=== PATIENT | female | born 1970 | race Caucasian/White ===

== ENCOUNTER 2016-09-28 15:35 | Emergency (ER) | payer OTHER ==
[2016-09-28 16:22] LABS: BASOPHILS 0.3 % (0.0-2.0); EOSINOPHILS 0.5 % (0.0-6.0); EOSINOPHILS# 0.1 X 10^3uL (0.0-0.4); HEMATOCRIT 44.6 % (36.0-48.0); HEMOGLOBIN 15.3 g/dL (12.0-16.0); LYMPHOCYTES 16.7 % (20.0-40.0); LYMPHOCYTES# 2.4 X 10^3uL (0.8-3.8); MEAN CORPUS. HGB CONCENTRATION 34.3 g/dL (32.0-36.0); MEAN CORPUSCULAR HEMOGLOBIN 28.8 pg (29.0-35.0); MEAN PLATELET VOLUME 10.1 fL (7.4-10.4); MONOCYTES 5.2 % (2.0-10.0); MONOCYTES# 0.7 X 10^3uL (0.2-1.0); NEUTROPHILS 77.3 % (54.0-75.0); NEUTROPHILS# 11.1 X 10^3uL (2.6-6.7); PLATELET COUNT 369 X 10^3uL (130-440); RED BLOOD COUNT 5.31 X 10^6uL (4.20-6.10); RED CELL DISTRIBUTION WIDTH 12.3 % (11.5-14.5); WHITE BLOOD COUNT 14.3 X 10^3uL (3.9-10.7)
[2016-09-28] MEDS ORDERED: HYDROmorphone HCL 1 MG/ML SYR ONE (16:30)
[2016-09-28 16:31] LABS: A/G RATIO 1.2; ALBUMIN 4.3 g/dL (3.5-5.0); ALKALINE PHOSPHATASE 81 U/L (38-126); ALT 40 U/L (9-52); AST 29 U/L (14-36); BILIRUBIN, TOTAL 0.9 mg/dL (0.2-1.3); BLOOD UREA NITROGEN 12 mg/dL (7-17); CALCIUM 9.5 mg/dL (8.4-10.2); CHLORIDE 103 mmol/L (98-107); CREATININE 0.9 mg/dL (0.5-1.0); EST GLOMERULAR FILTRATION RATE > 60 mL/min; GLUCOSE 171 mg/dL (70-100); POTASSIUM 3.2 mmol/L (3.5-5.1); SODIUM 139 mmol/L (137-145)
[2016-09-28] MEDS ORDERED: ONDANSETRON ODT 4 MG TAB.RAPDIS ONE (16:49)
[2016-09-28] MEDS ORDERED: LORazepam 2 MG/ML INJ ONE (16:51)
--- NOTE | 2016-09-28 17:03 | CT REPORT ---
HISTORY: Headache, nausea, vomiting COMPARISON: None. TECHNIQUE: Axial non-contrast images obtained from skull vertex through foramen magnum. Dose reduction technique was utilized. FINDINGS: BRAIN: There is no atrophy. No acute intracranial hemorrhage. No mass effect or hydrocephalus. There is a subtle lucency in the right posterior cerebellar hemisphere which could represent normal folia versu s tiny remote lacunar infarct. BONES AND EXTRACRANIAL SOFT TISSUES: The orbits are unremarkable. The paranasal sinuses and mastoid air cells are clear. The calvarium is intact. IMPRESSION: 1. No acute intracranial abnormality. 2. Subtle lucency in the right posterior cerebellar hemisphere which could represent normal folia hank arnaud remote lacunar infarct. Final Electronic Signature: This report was electronically signed by Derian Rizo MD on 09/28/2016 5:01 PM. moe /
--- NOTE | 2016-09-28 18:21 | ER PHYSICIAN DOCUMENTATION ---
Physician Documentation [facility] Name:Jane Carrington Age:46 yrs Sex:Female :1970 Arrival Date:09/28/2016 Time:15:35 Bed4 Private MD: Khurram Irizarry Disposition: 09/28/16 17:43 Discharged to Home/Self Care. Impression: Acute Headache, Palpitations. - Condition is Good. - Discharge Instructions: HEADACHE, Unspecified, PALPITATIONS. - Prescriptions for [place] 5- 325 mg Oral - take 1 tablet by ORAL route every 6 hours As needed; 5 tablet. Zofran 4 mg Oral Tablet - take 1-2 tablet by ORAL route every 4-6 hours As needed; 10 tablet. - Medical Reconciliation form form. - Follow up: Private Physician; When: 4- 6 days; Reason: Recheck today's complaints, Continuance of care. - Problem is new. - Symptoms are resolved. HPI: 09/28 15:57 This 46 yrs old Female presents to ER via EMS with complaints of tl1 Nausea/Vomiting . 15:57 The patient presents to the emergency department with nausea, with vomiting. Onset: The tl1 symptom(s)/episode began/occurred suddenly, today. 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 2 weeks ago she was [facility] hospitalized in [place] with a bowel obstruction, that resolved with steroids. Since then she has been getting better, though she developed a cold about a week ago. Today she drove to [facility] and climbed the [place] [employer] [place] which was about 4 miles up. She felt fine at the top and rested, with her moon retriever, Brendan, for about 5 minutes before hiking down. Shortly after she started her descent. she had the abrupt onset of palpitations that were rapid and forceful. She continued her descent and developed a fairly rapid onset h/a over several minutes and developed,nausea and progressive fatigue, shakiness, and generalized weakness. She was able to hike down to the parking lot, but felt increasing. 15:57 ly awful and had to stop to rest several times. By the time she got to the parking lot [facility] she was very weak and nearly incontinent of stool. Medics were summoned and she was transported here for evaluation. On arrival, her palpitations had stopped but she continued to have a moderately severe h/a, nausea and malaise. She denied photophobia, visual changes, speech problems, gait instability. No vertigo. No abdominal pain. No melena, hematochezia or hematemesis.. Historical: - Allergies: No known drug Allergies; - Home Meds: 1. estrogen 2. budesonide oral - PMHx: crohns; bowel obstruction; - PSHx: bowel resection; c section; Hysterectomy; breast reduction; - Tetanus: unknown. - Ebola Screening: : Patient negative for fever greater than or equal to 101.5 degrees Fahrenheit, and additional compatible Ebola Virus Disease symptoms. - Immunization history: Flu Vaccine < 1 year. - Social history: Smoking status: Patient states was never smoker of tobacco. ROS: 15:57 Abdomen/GI: Positive for nausea, diarrhea. tl1 15:57 All other systems are negative. Exam: 15:57 Constitutional: The patient appears alert, awake, well developed, well groomed, well tl1 nourished, listless, in obvious distress, moderately distressed, obviously ill, restless, uncomfortable. 15:57 Head/face: Exam is negative for acute changes. 15:57 Eyes: Pupils: no acute changes, equal, round, and reactive to light and accomodation. 15:57 ENT: Mouth: Oral mucosa: pink and intact, dry, Posterior pharynx: is normal. 15:57 Neck: External neck: is normal, ROM/movement: is normal. 15:57 Cardiovascular: Rate: normal, Rhythm: regular, Heart sounds: normal, Edema: is not appreciated, JVD: is not appreciated. 15:57 Respiratory: Respirations: normal, Breath sounds: are normal. 15:57 Abdomen/GI: Inspection: abdomen appears normal, Palpation: abdomen is soft and non-tender. 15:57 Back: CVA tenderness, is absent, vertebral tenderness, is not appreciated. 15:57 Musculoskeletal/extremity: Exam is negative for acute changes. 15:57 Skin: Exam negative for acute changes. 15:57 Neuro: Orientation: is normal, Mentation: is normal, Memory: is normal, Cranial nerves: grossly normal, Motor: moves all fours, strength is 5/5 in all extremities. Vital Signs: 09/28 15:37 BP 126 / 58 LA Sitting; Pulse 71; Resp 20; Temp 97(TE); Pulse Ox 99% on R/A; Weight la 78.02 kg (R); Height 5 ft. 7 in. (170.18 cm) (R); Pain 8/10; 16:17 BP 161 / 89 LA Sitting; Pulse 68; Resp 24 S; Pulse Ox 98% on R/A; Pain 8/10; la 16:35 BP 119 / 66 Sitting; Pulse 66; Resp 18; Pulse Ox 100% on R/A; Pain 3/10; la 17:03 BP 153 / 84 LA Supine; Pulse 68; Resp 16; Pulse Ox 98% on R/A; Pain 3/10; la 17:39 BP 149 / 84 LA Supine; Pulse 64; Resp 16 S; Pulse Ox 100% on R/A; Pain 3/10; la 18:16 BP 124 / 79 RA Supine; Pulse 64; Resp 16; Pulse Ox 98% on R/A; Pain 3/10; la 15:37 Body Mass Index 26.94 (78.02 kg, 170.18 cm) la Eitan Coma Score: 15:40 Eye Response: spontaneous(4). Verbal Response: oriented(5). Motor Response: obeys la commands(6). Total: 15. 18:16 Eye Response: spontaneous(4). Verbal Response: oriented(5). Motor Response: obeys la commands(6). Total: 15. MDM: 15:50 Differential diagnosis: dysrhythmia, vagal reaction, anxiety, hyperventillation, tl1 dehydration, SAH. Data reviewed: vital signs, nurses notes, lab test result(s), CBC, electrolytes, hepatic panel, and as a result, I will discharge patient. 15:57 Patient medically screened. tl1 16:20 ECG:. tl1 16:46 EKG attached la 17:21 Special discussion: Not sure how to put this all together. I suspect a tachydysrhythmia tl1 with subsequent hyperventillation. Head CT is negative for SAH. I don't think she needs an LP. Doubt PE. Not sure how this could be related to her Crohns.. ED course: Symptoms largely mitigated with dilaudid, zofran, ativan, IVNS. She was resting very comfortably during the latter part of her ED stay, while waiting for her sister to come get her from [place]. Vital signs normal.. 09/29 15:57 Response to treatment: the patient's symptoms have markedly improved after treatment, tl1 and as a result, I will discharge patient. 09/28 16:31 Order name: CBC AUTO DIF, MDIF/RMOR IF IND; Complete Time: 18:50 EDMS 09/29 18:49 Interpretation: WHITE BLOOD COUNT 14.3; HEMOGLOBIN 15.3; HEMATOCRIT 44.6; PLATELET tl1 COUNT 369; NEUTROPHILS 77.3; LYMPHOCYTES 16.7. 09/28 16:31 Order name: COMPREHENSIVE METABOLIC PANEL; Complete Time: 18:50 EDMS 09/29 18:50 Interpretation: SODIUM 139; POTASSIUM 3.2; CHLORIDE 103; CARBON DIOXIDE 20; GLUCOSE tl1 171; BLOOD UREA NITROGEN 12; CREATININE 0.9. 09/28 17:05 Order name: CAT SCAN; HEAD W/O CON 32395; Complete Time: 18:50 EDMS 09/29 18:50 Interpretation: Normal. tl1 09/28 16:03 Order name: EKG - 12 Lead; Complete Time: 16:09 tl1 EC/15 15:50 Rate is 67 beats/min. Rhythm is regular. QRS [place] is Normal. MN interval is normal at tl1 154 msec. QRS interval is normal at 90 msec. QT interval is normal at 460 msec. No Q waves. T waves are Normal. No ST changes noted. Clinical impression: Normal ECG and With borderline QT prolongation (QTc = 486). Interpreted by me. Reviewed by me. Dispensed Medications: 16:24 Drug: Dilaudid 0.5 mg; Route: IVP; Site: right antecubital; la 16:30 Follow up: Response: No adverse reaction la 16:48 Follow up: Response: Pain is decreased la 16:24 Drug: Zofran 4 mg; Route: IVP; Infused Over: 2 mins; Site: right antecubital; la 16:30 Follow up: Response: No adverse reaction la 16:48 Follow up: Response: Nausea is decreased la 16:24 Drug: NS 0.9% 1000 ml; Route: IV; Rate: bolus; Site: right antecubital; la 16:30 Follow up: Response: No adverse reaction la 17:35 Follow up: IV Status: Completed infusion; IV Intake: 1000ml la 16:45 Drug: Ativan 0.5 mg; Route: IVP; Site: right antecubital; la 16:50 Follow up: Response: No adverse reaction la 17:04 Follow up: Response: Anxiety decreased la Signatures: Alma Tavera Tom, MD MD tl1
--- NOTE | 2016-09-28 18:21 | ER NURSING DOCUMENTATION ---
Nurse's Notes [facility] Name:Jane Carrington Age:46 yrs Sex:Female :1970 Arrival Date:09/28/2016 Time:15:35 Bed4 Private MD: Diagnosis:Acute Headache;Palpitations Presentation: 09/28 15:37 Presenting complaint: Patient states: [place], developed la lightheadedness, headache, weakness and SOB on the way down. Denies chest pain. vomited x1, loss of bowels. Transition of care: Other [place] peggy head. 15:37 Acuity: DREW 3 la 15:37 Method Of Arrival: EMS: 410 la 16:26 Care prior to arrival: IV initiated. gauge and site 20g, right AC Glucose check. 172 IV la Fluids given by EMS NS 1000 ml. Triage Assessment: 15:44 General: Appears uncomfortable, Behavior is appropriate for age, cooperative, pleasant. la Pain: Complains of pain in headache Pain currently is 8 out of 10 on a pain scale. Quality of pain is described as aching, Pain began 2 hours ago. EENT: No deficits noted. Neuro: Level of Consciousness is awake, alert, obeys commands, Oriented to person, place, time, event, Screw Machine Tender are equal bilaterally Moves all extremities. Speech is normal. Cardiovascular: Denies chest pain Rhythm is sinus rhythm. Respiratory: Airway is patent Trachea midline Respiratory effort is labored, Respiratory pattern is hyperventilation Breath sounds are clear bilaterally. GI: Reports diarrhea, vomiting. 15:56 : No deficits noted. Derm: Skin is moist, Skin is flushed, Skin temperature is warm. la Musculoskeletal: No deficits noted. Historical: - Allergies: No known drug Allergies; - Home Meds: 1. estrogen 2. budesonide oral - PMHx: crohns; bowel obstruction; - PSHx: bowel resection; c section; Hysterectomy; breast reduction; - Tetanus: unknown. - Ebola Screening: : Patient negative for fever greater than or equal to 101.5 degrees Fahrenheit, and additional compatible Ebola Virus Disease symptoms. - Immunization history: Flu Vaccine < 1 year. - Social history: Smoking status: Patient states was never smoker of tobacco. Screenin:58 Infectious Disease Risk None. Abuse screen: Denies threats or abuse. Nutritional la screening: No deficits noted. Assessment: 15:58 See Triage Assessment done by same RN. la 16:28 GI: Denies nausea. la 16:48 Reassessment: Patient states feeling better. Patient states symptoms have improved. la Patient appears in no apparent distress at this time. to CT. 17:05 Reassessment: Patient states feeling better. Patient states symptoms have improved. la Patient appears in no apparent distress at this time. Dr Spring at bedside, gatorade given. 17:41 Reassessment: Patient states feeling better. Patient states symptoms have improved. la Patient appears in no apparent distress at this time. GI: Denies nausea. 17:46 Reassessment: up to bathroom, gait steady, states she is a little lightheaded. . la 18:17 Reassessment: Patient states feeling better. Patient states symptoms have improved. la Patient appears in no apparent distress at this time. Neuro: Level of Consciousness is awake, alert, obeys commands, Oriented to person, place, time, event, Screw Machine Tender are equal bilaterally Moves all extremities. Speech is normal, Pupils are PERRLA. 18:18 GI: Denies nausea. la Vital Signs: 15:37 BP 126 / 58 LA Sitting; Pulse 71; Resp 20; Temp 97(TE); Pulse Ox 99% on R/A; Weight la 78.02 kg (R); Height 5 ft. 7 in. (170.18 cm) (R); Pain 8/10; 16:17 BP 161 / 89 LA Sitting; Pulse 68; Resp 24 S; Pulse Ox 98% on R/A; Pain 8/10; la 16:35 BP 119 / 66 Sitting; Pulse 66; Resp 18; Pulse Ox 100% on R/A; Pain 3/10; la 17:03 BP 153 / 84 LA Supine; Pulse 68; Resp 16; Pulse Ox 98% on R/A; Pain 3/10; la 17:39 BP 149 / 84 LA Supine; Pulse 64; Resp 16 S; Pulse Ox 100% on R/A; Pain 3/10; la 18:16 BP 124 / 79 RA Supine; Pulse 64; Resp 16; Pulse Ox 98% on R/A; Pain 3/10; la 15:37 Body Mass Index 26.94 (78.02 kg, 170.18 cm) la Eitan Coma Score: 15:40 Eye Response: spontaneous(4). Verbal Response: oriented(5). Motor Response: obeys la commands(6). Total: 15. 18:16 Eye Response: spontaneous(4). Verbal Response: oriented(5). Motor Response: obeys la commands(6). Total: 15. ED Course: 15:36 Patient arrived in ED. lm3 15:37 Alma Tavera is Primary Nurse. la 15:40 Triage completed. la 15:50 EKG done. (by ED staff). Reviewed by Khurram Spring MD. Maintain field IV. Dressing intact. la Site clean & dry. Gauge & site: 20g right AC. 15:57 Khurram Spring MD is Attending Physician. tl1 15:58 Valuables Remains with patient Patient has correct armband on for positive la identification. Placed in gown. Bed in low position. Call light in reach. Side rails up X 1. Door closed. Lights dimmed. Cool cloth applied. Verbal reassurance given. Warm blanket given. Pillow given. 16:[address] pm1 16:46 EKG attached la 17:01 Patient moved back from CT. pm1 18:[address] pm1 Administered Medications: 16:24 Drug: Dilaudid 0.5 mg; Route: IVP; Site: right antecubital; la 16:30 Follow up: Response: No adverse reaction la 16:48 Follow up: Response: Pain is decreased la 16:24 Drug: Zofran 4 mg; Route: IVP; Infused Over: 2 mins; Site: right antecubital; la 16:30 Follow up: Response: No adverse reaction la 16:48 Follow up: Response: Nausea is decreased la 16:24 Drug: NS 0.9% 1000 ml; Route: IV; Rate: bolus; Site: right antecubital; la 16:30 Follow up: Response: No adverse reaction la 17:35 Follow up: IV Status: Completed infusion; IV Intake: 1000ml la 16:45 Drug: Ativan 0.5 mg; Route: IVP; Site: right antecubital; la 16:50 Follow up: Response: No adverse reaction la 17:04 Follow up: Response: Anxiety decreased la Intake: 17:35 IV: 1000ml; Total: 1000ml. la Outcome: 17:43 Discharge ordered by . tl1 18:19 Discharged to home ambulatory, with family. alek 18:19 Condition: improved 18:19 Discharge Assessment: Patient awake, alert and oriented x 3. No cognitive and/or functional deficits noted. Patient verbalized understanding of disposition instructions. 18:19 Discharge instructions given to patient, Instructed on discharge instructions, follow up and referral plans. medication usage, no drinking with medication, Demonstrated understanding of instructions, medications, Prescriptions given X 2. 18:19 IV D/Ender 18:20 Patient left the ED. alek Addendum: 09/30/2016 18:41 Addendum: [place]allow up call: No answer. st Signatures: Tamie Grey, RN RN Andrew Sinha pm1 Alma Tavera Tom, MD MD tl1 Priscila Mancera lm3
== END 2016-09-28 18:20 | disposition home or self-care (01) ==
LOC: ER 15:35
DX: R51 Headache (principal); R00.2 Palpitations; E86.0 Dehydration; R11.0 Nausea; R19.7 Diarrhea, unspecified; R53.83 Other fatigue; K50.90 Crohn's disease, unspecified, without complications; Z79.899 Other long term (current) drug therapy
CPT/HCPCS: 70450; 80053; 85025; 93005; 96361; 96374; 96375; 99284; A0425; A0429; J1170; J2060